=== PATIENT | female | born 1945 | race Asian ===

== ENCOUNTER 2020-08-06 17:33 | Inpatient (IN) | payer MEDICARE, OTHER ==
[~2020-08-06] VITALS: Ht 149.9 cm; Wt 50.4 kg
[~2020-08-06 17:33] MED LIST: AMLO-257 PO; ATOR10TA84 PO; CLOP75TA14 PO; METF-960 PO
[2020-08-06] MEDS ORDERED: D-ME-162 PO (17:42)
[2020-08-06 18:33] LABS: BASOPHILS % (AUTO) 0.5 % (0.0-2.0); EOSINOPHILS % (AUTO) 1.1 % (1.0-6.0); HEMATOCRIT 41.5 % (36-46); HEMOGLOBIN 13.5 g/dL (12.0-16.0); LYMPHOCYTES # (AUTO) 0.8 K/uL (1.0-4.8); LYMPHOCYTES % (AUTO) 11.6 % (22.0-44.0); MEAN CORPUSCULAR HGB CONC 32.5 G/dL (31.0-37.0); MEAN CORPUSCULAR VOLUME 86 fL (80-100); MONOCYTES # (AUTO) 0.7 K/uL (0.1-1.0); MONOCYTES % (AUTO) 10.4 % (2.0-9.0); NEUTROPHILS # (AUTO) 5.3 K/uL (1.8-7.7); NEUTROPHILS % (AUTO) 76.4 % (40.0-70.0); PLATELET COUNT (AUTO) 429 K/uL (150-450); RED BLOOD CELL COUNT(AUTO) 4.82 MIL/uL (4.00-5.20)
[2020-08-06 18:44] LABS: ANION GAP 7 mmol/L (8-16); CALCIUM, TOTAL 9.1 mg/dL (8.8-10.5); CARBON DIOXIDE 30 mmol/L (22-29); CHLORIDE 101 mmol/L (98-107); CREATININE 0.71 mg/dL (0.60-1.30); GLOMERULAR FILTR. RATE CALC > 60 mL/min (>60); GLUCOSE,RANDOM 138 mg/dL (70-110); SODIUM SERUM 138 mmol/L (136-145); UREA NITROGEN, BLOOD 7 mg/dL (7-18)
[2020-08-06 18:50] LABS: ALANINE AMINOTRANSFERASE 31 U/L (12-78); ALBUMIN 2.6 g/dL (3.4-5.0); ALKALINE PHOSPHATASE 119 U/L (46-116); ASPARTATE AMINOTRANSFERASE 21 U/L (15-37); BILIRUBIN,TOTAL 0.5 mg/dL (0.1-1.0); TOTAL PROTEIN, SERUM 7.9 g/dL (6.4-8.2)
[2020-08-06 19:04] LABS: B-TYPE NATRIURETIC PEPTIDE 96 pg/mL (0-100)
[2020-08-06] MEDS ORDERED: DEXAMETHASONE SOD PHOS 4 MG/ML 5 ML VIAL IVP ONE (19:15)
[2020-08-06] MEDS ORDERED: AZITHROMYCIN 500 MG/NS 250 ML IV ONE (19:15)
[2020-08-06 19:44] LABS: C-REACTIVE PROTEIN QUANT 2.77 mg/dL (0.00-0.30); FERRITIN 495 ng/mL (8-252)
[2020-08-06 20:14] LABS: COVID AG,FIA SOURCE NASOPHARYNGEAL
[2020-08-06] MEDS ORDERED: 0.9% SODIUM CHLORIDE 10 ML SYRINGE IVP PRN (21:00)
[2020-08-06] MEDS ORDERED: ACETAMINOPHEN 325 MG TABLET PO PRN ×2 (21:00→21:30)
[2020-08-06] MEDS ORDERED: BENZONATATE 100 MG CAPSULE PO PRN (21:15)
[2020-08-06] MEDS ORDERED: ALBUTEROL SULFATE HFA 90 MCG/PUFF 8 GM INHALER IH PRN (21:15)
[2020-08-06] MEDS ORDERED: DEXTROSE 50%-WATER 25 GM/50 ML SYRINGE IVP PRN (21:15)
[2020-08-06] MEDS: APIXABAN 5 MG TABLET PO SCH (22:05)
[2020-08-07 06:35] LABS: GLUCOSE,POINT OF CARE 167 MG/DL (70-110)
[2020-08-07 08:31] LABS: BASOPHILS % (AUTO) 0.2 % (0.0-2.0); EOSINOPHILS % (AUTO) 0 % (1.0-6.0); HEMATOCRIT 44.6 % (36-46); HEMOGLOBIN 14.5 g/dL (12.0-16.0); LYMPHOCYTES # (AUTO) 0.6 K/uL (1.0-4.8); LYMPHOCYTES % (AUTO) 12.6 % (22.0-44.0); MEAN CORPUSCULAR HGB CONC 32.4 G/dL (31.0-37.0); MEAN CORPUSCULAR VOLUME 86 fL (80-100); MONOCYTES # (AUTO) 0.1 K/uL (0.1-1.0); MONOCYTES % (AUTO) 2.2 % (2.0-9.0); PLATELET COUNT (AUTO) 399 K/uL (150-450); RED BLOOD CELL COUNT(AUTO) 5.17 MIL/uL (4.00-5.20)
[2020-08-07] MEDS: MetFORMIN HCL 500 MG TABLET PO SCH ×2 (08:42→18:17)
[2020-08-07] MEDS: APIXABAN 5 MG TABLET PO SCH ×2 (08:42→22:32)
[2020-08-07] MEDS: FAMOTIDINE 20 MG TABLET PO SCH ×2 (08:42→20:25)
[2020-08-07] MEDS: DOCUSATE SODIUM 100 MG CAPSULE PO SCH ×2 (08:42→20:24)
[2020-08-07] MEDS: DEXAMETHASONE SOD PHOS 4 MG/ML VIAL IVP SCH (08:43)
[2020-08-07] MEDS: AmLODIPine BESYLATE 10 MG TABLET PO SCH (08:43)
[2020-08-07 08:48] LABS: ALANINE AMINOTRANSFERASE 27 U/L (12-78); ALBUMIN 2.7 g/dL (3.4-5.0); ALKALINE PHOSPHATASE 115 U/L (46-116); ANION GAP 8 mmol/L (8-16); ASPARTATE AMINOTRANSFERASE 25 U/L (15-37); BILIRUBIN,TOTAL 0.6 mg/dL (0.1-1.0); CARBON DIOXIDE 24 mmol/L (22-29); CHLORIDE 104 mmol/L (98-107); CREATININE 0.55 mg/dL (0.60-1.30); GLUCOSE,RANDOM 175 mg/dL (70-110); POTASSIUM 3.9 mmol/L (3.5-5.1); SODIUM SERUM 136 mmol/L (136-145); TOTAL PROTEIN, SERUM 7.9 g/dL (6.4-8.2); UREA NITROGEN, BLOOD 9 mg/dL (7-18)
[2020-08-07 08:49] LABS: GLOMERULAR FILTR. RATE CALC > 60 mL/min (>60)
[2020-08-07] MEDS ORDERED: AmLODIPine BESYLATE 5 MG TABLET PO SCH (09:00)
[2020-08-07 12:42] LABS: GLUCOSE,POINT OF CARE 156 MG/DL (70-110)
[2020-08-07 15:36] LABS: ABG A-A DIFF O2 45.6 mmHg (10-20.0); ABG BASE EXCESS -0.3 mmol/L (-2.0-3.0); ABG CARBOXYHEMOGLOBIN 0.6 % (0.0-1.5); ABG HCO3 24.6 mmol/L (22.0-26.0); ABG METHEMOGLOBIN 0.3 % (0.0-1.5); ABG OXYGEN CONTENT 18.6 mL/dL (15.0-23.0); ABG OXYGEN SATURATION 92.3 % (95.0-98.0); ABG OXYHEMOGLOBIN 91.5 % (94.0-100.0); ABG PCO2 35 mmHg (35-45); ABG PH 7.446 (7.35-7.450); ABG TOTAL HEMOGLOBIN 14.5 G/dL (12.0-18.0); O2 DEVICE,BLOOD GAS ROOM AIR (ROOM AIR); PO2, ARTERIAL BG 61.9 mmHg (75.0-83.0); SITE, BLOOD GAS RT RADIAL; SOURCE, BLOOD GAS ARTERIAL; TEMPERATURE, FAHRENHEIT, BG 98.6 FAHREN (96.0-98.6)
[2020-08-07 15:48] LABS: ALKALINE PHOSPHATASE 109 U/L (46-116); C-REACTIVE PROTEIN QUANT 1.85 mg/dL (0.00-0.30); CREATINE KINASE, TOTAL ONLY 35 U/L (26-192); FERRITIN 486 ng/mL (8-252); LACTATE DEHYDROGENASE 251 U/L (81-234)
[2020-08-07 18:24] VITALS: BP 132/63
[2020-08-07] MEDS: INSULIN LISPRO 100 UNITS/ML SQ PRN ×2 (18:26→20:36)
[2020-08-07 19:00] VITALS: BP 127/59
[2020-08-07 19:26] LABS: GLUCOMETER DEV NAME(LOC) 6S.1; GLUCOSE,POINT OF CARE 166 MG/DL (70-110)
[2020-08-07] MEDS: ATORVASTATIN CALCIUM 10 MG TABLET PO SCH (20:25)
[2020-08-07] MEDS ORDERED: SODIUM CHLORIDE 0.9% 250 ML IV ONE (21:11)
[2020-08-07 21:13] LABS: GLUCOMETER DEV NAME(LOC) 6N.2; GLUCOSE,POINT OF CARE 168 MG/DL (70-110)
[2020-08-07] MEDS: AZITHROMYCIN 500 MG/NS 250 ML IV SCH (22:32)
[2020-08-08 05:19] VITALS: BP 112/59
[2020-08-08 08:30] VITALS: BP 123/72
[2020-08-08] MEDS: APIXABAN 5 MG TABLET PO SCH ×2 (08:55→21:22)
[2020-08-08] MEDS: FAMOTIDINE 20 MG TABLET PO SCH ×2 (08:55→21:21)
[2020-08-08] MEDS: DEXAMETHASONE SOD PHOS 4 MG/ML VIAL IVP SCH (08:56)
[2020-08-08] MEDS: MetFORMIN HCL 500 MG TABLET PO SCH ×2 (08:56→18:38)
[2020-08-08] MEDS: DOCUSATE SODIUM 100 MG CAPSULE PO SCH ×2 (08:56→21:22)
[2020-08-08] MEDS: AmLODIPine BESYLATE 10 MG TABLET PO SCH (08:57)
[2020-08-08 09:02] LABS: GLUCOMETER DEV NAME(LOC) 6N.2; GLUCOSE,POINT OF CARE 123 MG/DL (70-110)
[2020-08-08] MEDS: INSULIN LISPRO 100 UNITS/ML SQ PRN ×3 (11:31→21:35)
[2020-08-08 12:52] LABS: C-REACTIVE PROTEIN QUANT 0.85 mg/dL (0.00-0.30)
[2020-08-08 15:34] VITALS: BP 147/82
[2020-08-08 18:06] LABS: GLUCOMETER DEV NAME(LOC) 6N.2; GLUCOSE,POINT OF CARE 146 MG/DL (70-110)
[2020-08-08 20:02] LABS: GLUCOMETER DEV NAME(LOC) 6S.1; GLUCOSE,POINT OF CARE 215 MG/DL (70-110)
[2020-08-08 20:29] VITALS: BP 128/73
[2020-08-08] MEDS: ATORVASTATIN CALCIUM 10 MG TABLET PO SCH (21:21)
[2020-08-08] MEDS: AZITHROMYCIN 500 MG/NS 250 ML IV SCH (21:22)
[2020-08-09 00:10] VITALS: BP 135/68
[2020-08-09 02:34] LABS: GLUCOMETER DEV NAME(LOC) 6N.2; GLUCOSE,POINT OF CARE 216 MG/DL (70-110)
[2020-08-09 07:54] LABS: GLUCOMETER DEV NAME(LOC) 6N.2; GLUCOSE,POINT OF CARE 131 MG/DL (70-110)
[2020-08-09] MEDS: DOCUSATE SODIUM 100 MG CAPSULE PO SCH (09:05)
[2020-08-09] MEDS: MetFORMIN HCL 500 MG TABLET PO SCH (09:05)
[2020-08-09] MEDS: APIXABAN 5 MG TABLET PO SCH (09:05)
[2020-08-09] MEDS: AmLODIPine BESYLATE 10 MG TABLET PO SCH (09:05)
[2020-08-09] MEDS: FAMOTIDINE 20 MG TABLET PO SCH (09:05)
[2020-08-09] MEDS: DEXAMETHASONE SOD PHOS 4 MG/ML VIAL IVP SCH (09:05)
[2020-08-09 09:19] VITALS: BP 124/70
[2020-08-09] MEDS: INSULIN LISPRO 100 UNITS/ML SQ PRN (11:45)
[2020-08-09 13:13] LABS: GLUCOMETER DEV NAME(LOC) 6N.2; GLUCOSE,POINT OF CARE 203 MG/DL (70-110)
== END 2020-08-09 14:00 | disposition home or self-care (01) | DRG 177 ==
LOC: EMS 17:33 → 6N 08-07 16:44
PROVIDERS: ADMIT Internal Medicine; ATTEND Internal Medicine
DX: U07.1 COVID-19 (principal); J12.89 Other viral pneumonia; E11.9 Type 2 diabetes mellitus without complications; I10 Essential (primary) hypertension; Z90.710 Acquired absence of both cervix and uterus; Z88.8 Allergy status to other drugs, medicaments and biological substances; R09.02 Hypoxemia
CPT/HCPCS: 36600; 82728; 82805; 83615; 84075; 84145; 85379; 85384; 86140; 87426; 93005; J0456; J1100; J7050; 36415-L1; 36415-TC; 71045-TC; U0003

== ENCOUNTER → 2023-01-19 | Outpatient (CLI) | payer MEDICARE, OTHER ==
[~2023-01-19] MED LIST changes: +ATOR10TA PO; -ATOR10TA84 PO; +CLOP-31 PO; -CLOP75TA14 PO; +D-ME-162 PO; +METF-1211 PO; -METF-960 PO
== END | disposition home or self-care (01) ==
LOC: RADPV 10:19
PROVIDERS: ATTEND Internal Medicine
DX: D17.24 Benign lipomatous neoplasm of skin and subcutaneous tissue of left leg (principal); R22.42 Localized swelling, mass and lump, left lower limb
CPT/HCPCS: 76881